=== PATIENT | male | born 1995 | race American Indian/Alaskan Native ===

== ENCOUNTER 2019-12-28 10:11 | Emergency (ER) | payer SELFPAY ==
[2019-12-28 10:46] VITALS: BP 124/70
--- NOTE | 2019-12-28 11:34 | Emergency Department Report ---
Abscess Boil HPI - HPI Chief Complaint: Skin/Abscess/Foreign Body Stated Complaint: GENITALS AREA/PAIN Time Seen by Provider: 12/28/19 11:32 Duration: >1 Week Location: Other Severity: Mild History: Yes Pain, No Fever, No Purulent Drainage, No Numbness, No Foreign Body, No Previous History, No Insect Bite HPI: 24 yo otherwise healthy male comes to ER with "bump" in his groin. no trauma. no hx of the same. no heavy lifting. no abd pain. no fever or chills Home Medications: Previous Rx's Medication Instructions Recorded Last Taken Type Ibuprofen [Motrin] 800 mg PO Q8HR PRN #30 tablet 12/28/19 Unknown Rx Sulfamethoxazole/Trimethoprim 1 each PO BID #14 tablet 12/28/19 Unknown Rx [Bactrim DS TAB] Allergies/Adverse Reactions: Allergies Allergy/AdvReac Type Severity Reaction Status Date / Time No Known Allergies Allergy Verified 12/28/19 10:45 ED Review of Systems ROS: Stated complaint: GENITALS AREA/PAIN Other details as noted in HPI Comment: All other systems reviewed and negative ED Past Medical Hx - Past Medical History Previous Medical History?: No - Surgical History Past Surgical History?: No - Family History Family history: no significant - Social History Smoking Status: Current Every Day Smoker Substance Use Type: Alcohol - Medications Home Medications: Home Medications Medication Instructions Recorded Confirmed Last Taken Type Ibuprofen [Motrin] 800 mg PO Q8HR PRN #30 tablet 12/28/19 Unknown Rx Sulfamethoxazole/Trimethoprim 1 each PO BID #14 tablet 12/28/19 Unknown Rx [Bactrim DS TAB] ED Abscess Boil Physical Exam - Exam General: Vital signs noted. No distress. Alert and acting appropriately. Front/Back of Body, Lg (Color): 1 - area involved Size: 1 cm Exam: Yes Tenderness, Yes Fluctuance, Yes Normal Neurologic Exam, Yes Normal Circulation, No Surrounding Cellulites/Erythema, No Lymphangitis, No Crepitation, No Heart Murmur I & D Note - I & D Note I & D Note: no i/d ED Course Vital Signs 12/28/19 10:43 Temperature 98.3 F Pulse Rate 78 Respiratory 16 Rate Blood Pressure 124/70 O2 Sat by Pulse 98 Oximetry Critical care attestation.: If time is entered above; I have spent that time in minutes in the direct care of this critically ill patient, excluding procedure time. ED Medical Decision Making - Medical Decision Making at the lateral boarder of the testicles, near fold of leg, pt has small dime size hard area. appears to be ingrown hair no id needed no penile dc no penile lesions no testicular pain pt will dc home with antibiotics and pcp follow up Vital Signs 12/28/19 10:43 Temperature 98.3 F Pulse Rate 78 Respiratory 16 Rate Blood Pressure 124/70 O2 Sat by Pulse 98 Oximetry - Differential Diagnosis abscess/ingrown hair/std ED Disposition Clinical Impression: Ingrown hair Disposition: DC-01 TO HOME OR SELFCARE Is pt being admited?: No Does the pt Need Aspirin: No Condition: Stable Additional Instructions: SOAK IN TUB OF EPSOM SALTS MEDS ORDERED TODAY FOLLOW UP WITH PCP NEXT WEEK REFERRAL BELOW Prescriptions: Sulfamethoxazole/Trimethoprim [Bactrim DS TAB] 1 each PO BID #14 tablet Ibuprofen [Motrin] 800 mg PO Q8HR PRN #30 tablet PRN Reason: Pain, Moderate (4-6) Referrals: DAVID SNIDER MD [Staff Physician] - 3-5 Days Time of Disposition: 11:33
== END 2019-12-28 11:40 | disposition home or self-care (01) ==
LOC: ED 10:11
DX: L73.1 Pseudofolliculitis barbae (principal); F17.200 Nicotine dependence, unspecified, uncomplicated; Z79.1 Long term (current) use of non-steroidal anti-inflammatories (NSAID); Z79.899 Other long term (current) drug therapy
CPT/HCPCS: 99282